=== PATIENT | female | born 1995 | race American Indian/Alaskan Native ===

== ENCOUNTER 2019-08-24 14:04 | Emergency (ER) | payer SELFPAY ==
[2019-08-24 15:33] VITALS: BP 109/77
[2019-08-24] MEDS ORDERED: ONDANSETRON 4 MG ODT TAB PO ONE ×2 (15:33→18:52)
--- NOTE | 2019-08-24 15:34 | Emergency Department Report ---
Blank Doc - Documentation Documentation: 23-year-old female that presents with n/v/d. This initial assessment/diagnostic orders/clinical plan/treatment(s) is/are subject to change based on patient's health status, clinical progression and re- assessment by fellow clinical providers in the ED. Further treatment and workup at subsequent clinical providers discretion. Patient/guardians urged not to elope from the ED as their condition may be serious if not clinically assessed and managed. Initial orders include: 1- Patient sent to [facility] for further evaluation and treatment 2- labs 3- UA
[2019-08-24] MEDS ORDERED: ONDANSETRON 4 MG ODT TAB ONE ×2 (15:36→19:00)
[2019-08-24 16:11] LABS: Basophils % (Auto) 0.4 % (0.0-1.8); Eosinophils % (Auto) 0.7 % (0.0-4.3); Hematocrit 43.3 % (30.3-42.9); Hemoglobin 14.4 gm/dl (10.1-14.3); Lymphocytes % (Auto) 13.8 % (13.4-35.0); Mean Corpuscular HGB Conc 33 % (30-34); Mean Corpuscular Volume 88 fl (79-97); Monocytes # (Auto) 0.4 K/mm3 (0.0-0.8); Monocytes % (Auto) 6.1 % (0.0-7.3); Platelet Count 256 K/mm3 (140-440); Red Blood Count 4.95 M/mm3 (3.65-5.03); Red Cell Distribution Width 15.1 % (13.2-15.2)
[2019-08-24 16:22] LABS: Bilirubin,Urine NEG (Negative); Blood,Urine NEG (Negative); Color,Urine Yellow (Yellow); Mucus,Urine FEW /HPF; Protein,Urine <15 mg/dL mg/dL (Negative); Urobilinogen,Urine < 2.0 mg/dL (<2.0)
[2019-08-24 16:40] LABS: Alanine Aminotransferase 28 units/L (7-56); BUN/Creatinine Ratio 14; Blood Urea Nitrogen 10 mg/dL (7-17); Hemolysis Index 13
--- NOTE | 2019-08-24 18:46 | Emergency Department Report ---
ED N/V/D HPI - General Chief complaint: Nausea/Vomiting/Diarrhea Stated complaint: V/N/D Time Seen by Provider: 08/24/19 15:33 Source: patient Mode of arrival: Ambulatory Limitations: No Limitations - History of Present Illness Initial comments: Patient is a 23-year-old female presents emergency room with complaints of nausea, vomiting, diarrhea that began today. She states that she had approximately 3 episodes of vomiting and a few episodes of diarrhea. She denies any sick contacts. She states that yesterday she ate rice and coleslaw which she thinks may have caused her symptoms. She denies any abdominal pain, urinary symptoms, fever, blood or pus in the stool, hematemesis. She denies any recent travel, recent camping, water from a different source, recent antibiotics. She denies any past medical history. She denies any allergies to medications. She states her last menstrual cycle was 08/02/2019. Patient states that she was given Zofran while in triage and that significantly improved her symptoms and she has had no further episodes of vomiting or diarrhea while in the emergency department. - Related Data Previous Rx's Medication Instructions Recorded Last Taken Type Dicyclomine [Bentyl] 20 mg PO Q8HR PRN #14 tablet 08/24/19 Unknown Rx Ondansetron [Zofran Odt] 4 mg PO Q8HR PRN #14 tab.rapdis 08/24/19 Unknown Rx Allergies Allergy/AdvReac Type Severity Reaction Status Date / Time No Known Allergies Allergy Verified 08/24/19 15:37 ED Review of Systems ROS: Stated complaint: V/N/D Other details as noted in HPI Comment: All other systems reviewed and negative ED Past Medical Hx - Past Medical History Previous Medical History?: No - Surgical History Past Surgical History?: No - Social History Smoking Status: Never Smoker Substance Use Type: None - Medications Home Medications: Home Medications Medication Instructions Recorded Confirmed Last Taken Type Dicyclomine [Bentyl] 20 mg PO Q8HR PRN #14 tablet 08/24/19 Unknown Rx Ondansetron [Zofran Odt] 4 mg PO Q8HR PRN #14 tab.rapdis 08/24/19 Unknown Rx ED Physical Exam - General Limitations: No Limitations General appearance: alert, in no apparent distress - Head Head exam: Present: atraumatic, normocephalic - Eye Eye exam: Present: normal appearance - ENT ENT exam: Present: mucous membranes moist - Respiratory Respiratory exam: Present: normal lung sounds bilaterally. Absent: respiratory distress, wheezes, rales, rhonchi, stridor, chest wall tenderness, accessory muscle use, decreased breath sounds, prolonged expiratory - Cardiovascular Cardiovascular Exam: Present: regular rate, normal rhythm, normal heart sounds. Absent: systolic murmur, diastolic murmur, rubs, gallop - GI/Abdominal GI/Abdominal exam: Present: soft, normal bowel sounds. Absent: distended, tenderness, guarding, rebound, rigid - Neurological Exam Neurological exam: Present: alert, oriented X3 - Psychiatric Psychiatric exam: Present: normal affect, normal mood - Skin Skin exam: Present: warm, dry, intact ED Course Vital Signs 08/24/19 15:31 Temperature 98.3 F Pulse Rate 71 Respiratory 18 Rate Blood Pressure 109/77 O2 Sat by Pulse 100 Oximetry ED Medical Decision Making - Lab Data Result diagrams: 08/24/19 15:53 08/24/19 15:53 Lab Results 08/24/19 08/24/19 08/24/19 Range/Units 15:53 15:53 15:53 WBC 7.3 (4.5-11.0) K/mm3 RBC 4.95 (3.65-5.03) M/mm3 Hgb 14.4 H (10.1-14.3) gm/dl Hct 43.3 H (30.3-42.9) % MCV 88 (79-97) fl MCH 29 (28-32) pg MCHC 33 (30-34) % RDW 15.1 (13.2-15.2) % Plt Count 256 (140-440) K/mm3 Lymph % (Auto) 13.8 (13.4-35.0) % Butts % (Auto) 6.1 (0.0-7.3) % Eos % (Auto) 0.7 (0.0-4.3) % Baso % (Auto) 0.4 (0.0-1.8) % Lymph # 1.0 L (1.2-5.4) K/mm3 Butts # 0.4 (0.0-0.8) K/mm3 Eos # 0.0 (0.0-0.4) K/mm3 Baso # 0.0 (0.0-0.1) K/mm3 Seg Neutrophils % 79.0 H (40.0-70.0) % Seg Neutrophils # 5.7 (1.8-7.7) K/mm3 Sodium 134 L (137-145) mmol/L Potassium 4.1 (3.6-5.0) mmol/L Chloride 100.5 (98-107) mmol/L Carbon Dioxide 19 L (22-30) mmol/L Anion Gap 19 mmol/L BUN 10 (7-17) mg/dL Creatinine 0.7 (0.7-1.2) mg/dL Estimated GFR > 60 ml/min BUN/Creatinine Ratio 14 % Glucose 96 (65-100) mg/dL Calcium 10.0 (8.4-10.2) mg/dL Total Bilirubin 0.90 (0.1-1.2) mg/dL AST 21 (5-40) units/L ALT 28 (7-56) units/L Alkaline Phosphatase 63 (35-129) units/L Total Protein 8.6 H (6.3-8.2) g/dL Albumin 5.0 (3.9-5) g/dL Albumin/Globulin Ratio 1.4 % Lipase 20 (13-60) units/L HCG, Qual Negative (Negative) Urine Color (Yellow) Urine Turbidity (Clear) Urine pH (5.0-7.0) Ur Specific [place] (1.003-1.030) Urine Protein (Negative) mg/dL Urine Glucose (UA) (Negative) mg/dL Urine Ketones (Negative) mg/dL Urine Blood (Negative) Urine Nitrite (Negative) Urine Bilirubin (Negative) Urine Urobilinogen (<2.0) mg/dL Ur Leukocyte Esterase (Negative) Urine WBC (Auto) (0.0-6.0) /HPF Urine RBC (Auto) (0.0-6.0) /HPF U Epithel Cells (Auto) (0-13.0) /HPF Urine Mucus /HPF 08/24/19 Range/Units 16:07 WBC (4.5-11.0) K/mm3 RBC (3.65-5.03) M/mm3 Hgb (10.1-14.3) gm/dl Hct (30.3-42.9) % MCV (79-97) fl MCH (28-32) pg MCHC (30-34) % RDW (13.2-15.2) % Plt Count (140-440) K/mm3 Lymph % (Auto) (13.4-35.0) % Butts % (Auto) (0.0-7.3) % Eos % (Auto) (0.0-4.3) % Baso % (Auto) (0.0-1.8) % Lymph # (1.2-5.4) K/mm3 Butts # (0.0-0.8) K/mm3 Eos # (0.0-0.4) K/mm3 Baso # (0.0-0.1) K/mm3 Seg Neutrophils % (40.0-70.0) % Seg Neutrophils # (1.8-7.7) K/mm3 Sodium (137-145) mmol/L Potassium (3.6-5.0) mmol/L Chloride (98-107) mmol/L Carbon Dioxide (22-30) mmol/L Anion Gap mmol/L BUN (7-17) mg/dL Creatinine (0.7-1.2) mg/dL Estimated GFR ml/min BUN/Creatinine Ratio % Glucose (65-100) mg/dL Calcium (8.4-10.2) mg/dL Total Bilirubin (0.1-1.2) mg/dL AST (5-40) units/L ALT (7-56) units/L Alkaline Phosphatase (35-129) units/L Total Protein (6.3-8.2) g/dL Albumin (3.9-5) g/dL Albumin/Globulin Ratio % Lipase (13-60) units/L HCG, Qual (Negative) Urine Color Yellow (Yellow) Urine Turbidity Clear (Clear) Urine pH 5.0 (5.0-7.0) Ur Specific [place] 1.025 (1.003-1.030) Urine Protein <15 mg/dl (Negative) mg/dL Urine Glucose (UA) Neg (Negative) mg/dL Urine Ketones Neg (Negative) mg/dL Urine Blood Neg (Negative) Urine Nitrite Neg (Negative) Urine Bilirubin Neg (Negative) Urine Urobilinogen < 2.0 (<2.0) mg/dL Ur Leukocyte Esterase Neg (Negative) Urine WBC (Auto) 1.0 (0.0-6.0) /HPF Urine RBC (Auto) 2.0 (0.0-6.0) /HPF U Epithel Cells (Auto) 7.0 (0-13.0) /HPF Urine Mucus Few /HPF - Medical Decision Making Patient is a 23-year-old female presents emergency room with complaints of nausea, vomiting, diarrhea that began today. She states that she had approximately 3 episodes of vomiting and a few episodes of diarrhea. She denies any sick contacts. She states that yesterday she ate rice and coleslaw which she thinks may have caused her symptoms. She denies any abdominal pain, urinary symptoms, fever, blood or pus in the stool, hematemesis. She denies any recent travel, recent camping, water from a different source, recent antibiotics. She denies any past medical history. She denies any allergies to medications. She states her last menstrual cycle was 08/02/2019. Patient states that she was given Zofran while in triage and that significantly improved her symptoms and she has had no further episodes of vomiting or diarrhea while in the emergency department. vitals are normal. labs are all stable. hcg is negative. UA without evidence of UTI or dehydration. Patient states that she had some mild nausea otherwise that she was feeling much better, patient given ODT Zofran. She was able to tolerate p.o. intake without difficulty. Symptoms most likely related to a virus or something that she ate. Patient given prescription for Zofran and Bentyl. advised pt to please take medication as prescribed as needed. Increase your fluid intake significantly over the next several days. Eat a bland diet. Follow up with your primary care doctor in the next 2 to 3 days for reexamination. Return to the emergency room immediately for any new or worsening symptoms including but not limited to fever, abdominal pain, unable to tolerate by mouth intake, blood in your stool or vomit, pus in your stool, etc. please stay at home until you are 24 hours symptom free. - Differential Diagnosis Gastroenteritis, food poisoning, colitis, viral syndrome, IBS, IBD Critical care attestation.: If time is entered above; I have spent that time in minutes in the direct care of this critically ill patient, excluding procedure time. ED Disposition Clinical Impression: Nausea vomiting and diarrhea Disposition: - TO HOME OR SELFCARE Is pt being admited?: No Does the pt Need Aspirin: No Condition: Stable Instructions: Gastroenteritis (ED) Additional Instructions: Please take medication as prescribed as needed. Increase your fluid intake significantly over the next several days. Eat a bland diet. Follow up with your primary care doctor in the next 2 to 3 days for reexamination. Return to the emergency room immediately for any new or worsening symptoms including but not limited to fever, abdominal pain, unable to tolerate by mouth intake, blood in your stool or vomit, pus in your stool, etc. please stay at home until you are 24 hours symptom free. Prescriptions: Dicyclomine [Bentyl] 20 mg PO Q8HR PRN #14 tablet PRN Reason: abdominal cramping Ondansetron [Zofran Odt] 4 mg PO Q8HR PRN #14 tab.rapdis PRN Reason: Nausea And Vomiting Referrals: LAMONT WILSON MD [Staff Physician] - 2-3 Days [facility] [Outside] - 2-[address] [facility] [place] [Outside] - 2-3 Days Forms: Work/School Release Form(ED) Time of Disposition: 18:44 Print Language: ROMANSH
== END 2019-08-24 18:52 | disposition home or self-care (01) ==
LOC: ED 14:04
DX: R11.2 Nausea with vomiting, unspecified (principal); R19.7 Diarrhea, unspecified
CPT/HCPCS: 36415; 80053; 81001; 83690; 84703; 85025; 99283; Q0162